=== PATIENT | male | born 1965 | race Caucasian/White ===

== ENCOUNTER 2017-12-25 11:54 | Emergency (ER) | payer OTHER ==
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
[2017-12-25 15:00] VITALS: BP 141/85
== END 2017-12-25 15:00 | disposition home or self-care (01) ==
DX: S20.219A Contusion of unspecified front wall of thorax, initial encounter (principal); W22.8XXA Striking against or struck by other objects, initial encounter; Y93.55 Activity, bike riding